=== PATIENT | female | born 1990 | race Caucasian/White ===

== ENCOUNTER 2017-04-01 12:24 | Emergency (ER) | payer MEDICAID, OTHER ==
[~2017-04-01] VITALS: Ht 157.5 cm; Wt 61.5 kg
[2017-04-01 12:38] VITALS: Ht 157.5 cm; Wt 61.5 kg
[2017-04-01 13:44] LABS: URINE BLOOD (Dip) POC Negative (NEGATIVE)
[2017-04-01] MEDS ORDERED: ONDA4TAB14 PO (13:56)
--- NOTE | 2017-04-01 14:04 | ERD ---
ER Documentation Chief Complaint Date/Time DATE: 04/01/17 TIME: 13:57 Chief Complaint CAME IN DUE TO THINKING SHE IS HYPOTENSIVE AND FEELING NAUSEA HPI Patient is a 26-year-old female who presents to the emergency department for concerns of "being hypotensive" and feeling nauseous. She states early this morning she felt as if her blood pressure was "hypotensive". She did not check her blood pressure using a blood pressure machine. Patient states she felt slightly dizzy at that time. Patient denies any syncopal episodes. Patient states she did drink some [employer] and had a bread and her symptoms did improve. Patient denies any dizziness, chest pain, shortness of breath, abdominal pain, vomiting, syncopal episodes or loss consciousness at this time. Patient states her symptoms have improved upon arrival to the ED and she feels much better. Patient last mental period was 1 month ago however she has irregular periods. Patient denies any dysuria, frequency or urgency. Patient denied any alcohol or drug use. ROS All systems reviewed and are negative except as per history of present illness. Medications Home Meds Active Scripts Ondansetron (Ondansetron Odt) 4 Mg Tab.rapdis, 4 MG PO Q6H Y for NAUSEA AND/OR VOMITING, #10 TAB Prov:SUKI ROWE PA-C 04/01/17 Allergies Allergies: Coded Allergies: No Known Drug Allergy (Verified Allergy, Mild, 04/01/17) PMhx/Soc Medical and Surgical Hx: pt denies Medical Hx, pt denies Surgical Hx History of Surgery: No Anesthesia Reaction: No Hx Neurological Disorder: No Hx Respiratory Disorders: No Hx Cardiac Disorders: No Hx Psychiatric Problems: No Hx Miscellaneous Medical Probl: No Hx Alcohol Use: No Hx Substance Use: No Hx Tobacco Use: No Smoking Status: Never smoker Physical Exam Vitals Vital Signs Date Time Temp Pulse Resp B/P Pulse Ox O2 Delivery O2 Flow Rate FiO2 04/01/17 12:38 98.6 81 18 127/66 99 Physical Exam GENERAL: Well-developed, well-nourished female. Appears in no acute distress. Speaking in full sentences HEAD: Normocephalic, atraumatic. No deformities or ecchymosis. EYE: Pupils equal, round, and reactive to light. EOMs intact. No conjunctival erythema. No eye discharge. ENT: External ear without any masses or tenderness. Auditory canals clear bilaterally. TM visualized bilaterally, non-erythematous, non-bulging. Nasal mucosa pink with no discharge. Oropharynx is pink without any tonsillar erythema or exudates. No uvula deviation. No kissing tonsils. NECK: Supple. No meningismus. Normal ROM of the neck. LUNG: Clear to auscultation bilaterally. No rhonchi, wheezing, rales or coarse breath sounds. HEART: Regular rate and rhythm. No murmurs, rubs or gallops. BACK: No midline tenderness. EXTREMITIES: Equal pulses bilaterally. No peripheral clubbing, cyanosis or edema. No unilateral leg swelling. NEUROLOGIC: Alert and oriented x3, cooperative. Mood and affect appropriate to situation. Cranial nerves II through XII are grossly intact. Normal speech. Motor exam: 5/5 strength in upper and lower extremities. Sensory exam: Sensation intact to light touch on all four extremities. Cerebellar function exam: Rapid alternating movements intact. No dysmetria on [id number] test. Steady gait. No pronator drift. SKIN: Normal color. Warm and dry. No rashes or lesions. Results 24 hrs Laboratory Tests Test 04/01/17 13:50 04/01/17 13:51 04/01/17 14:18 Bedside Urine pH (LAB) 7.5 Bedside Urine Protein (LAB) 1+ Bedside Urine Glucose (UA) Negative Bedside Urine Ketones (LAB) 1+ Bedside Urine Blood Negative Bedside Urine Nitrite (LAB) Negative Bedside Urine Leukocyte Esterase (L Trace Bedside Glucose 88mg/dL 105mg/dL Procedures/MDM ED COURSE: The patient was stable throughout ED course. I kept the patient and/or family informed of laboratory and diagnostic imaging results throughout the ED course. EKG: Read by Dr. Grossman, attending physician. EKG shows normal sinus rhythm at a rate of 60 bpm. No arrhythmias, acute ST elevations or T wave changes were noted. MEDICAL DECISION MAKING: Patient is a 26-year-old female presents the emergency department for concerns of "hypo-tension" and feeling nauseous. Patient states she had symptoms earlier today however after drinking some coffee and eating bread her symptoms have improved. At time of examination, Patient denied any current symptoms. Vital signs were reviewed. Patient is afebrile. Patient was not hypoxic. Patient's blood pressure upon arrival was noted to be 126/66, within normal limits. Patient was hemodynamically stable. Accu-Chek was obtained. Patient' s blood sugar was 88. test was negative. Urine dip did show trace leukocyte esterase however I do not believe the patient has a UTI at this time given that she denies any dysuria, frequency or urgency. EKG was within normal limits, normal sinus rhythm. At this time the patient's presentation is most consistent with nausea. Patient's symptoms may have been due to a low blood sugar at the time given that she had not eaten prior to the onset of her symptoms. Patient will be discharged home with a prescription for Zofran. Low suspicion for ACS, arrhythmia, pericarditis, aortic dissection, hypoglycemia or hypotension. PRESCRIPTION: Zofran DISCHARGE: At this time, patient is stable for discharge and outpatient management. She was also encouraged to stay hydrated as well as eat meals throughout the day. She was encouraged to obtain a blood pressure machine and keep a log of her blood pressure readings. I have instructed the patient to follow-up with his/ her primary care physician in 1-2 days. I have discussed with the patient the possibility of needing to see a specialist for further workup and imaging studies if symptoms persist. I have instructed the patient to promptly return to the ER for any new or worsening symptoms including increased pain, fever, nausea, vomiting, weakness or LOC. The patient and/or family expressed understanding of and agreement with this plan. All questions were answered. Home care instructions were provided. Departure Diagnosis: Primary Impression: Nausea Additional Impression: Severe nausea and vomiting Condition: Stable Patient Instructions: Nausea Referrals: [facility] YOU HAVE RECEIVED A MEDICAL SCREENING EXAM AND THE RESULTS INDICATE THAT YOU DO NOT HAVE A CONDITION THAT REQUIRES URGENT TREATMENT IN THE EMERGENCY DEPARTMENT. FURTHER EVALUATION AND TREATMENT OF YOUR CONDITION CAN WAIT UNTIL YOU ARE SEEN IN YOUR DOCTORS OFFICE WITHIN THE NEXT 1-2 DAYS. IT IS YOUR RESPONSIBILITY TO MAKE AN APPOINTMENT FOR FOLOW-UP CARE. IF YOU HAVE A PRIMARY DOCTOR --you should call your primary doctor and schedule an appointment IF YOU DO NOT HAVE A PRIMARY DOCTOR YOU CAN CALL OUR PHYSICIAN REFERRAL HOTLINE AT IF YOU CAN NOT AFFORD TO SEE A PHYSICIAN YOU CAN CHOSE FROM THE FOLLOWING [facility] [address] [facility]. [facility] [address] [facility] [address] [facility] [facility] [address] [facility]. [facility] [address] [facility] [facility]. [address] [facility]. [facility] YOU HAVE RECEIVED A MEDICAL SCREENING EXAM AND THE RESULTS INDICATE THAT YOU DO NOT HAVE A CONDITION THAT REQUIRES URGENT TREATMENT IN THE EMERGENCY DEPARTMENT. FURTHER EVALUATION AND TREATMENT OF YOUR CONDITION CAN WAIT UNTIL YOU ARE SEEN IN YOUR DOCTORS OFFICE WITHIN THE NEXT 1-2 DAYS. IT IS YOUR RESPONSIBILITY TO MAKE AN APPOINTMENT FOR FOLOW-UP CARE. IF YOU HAVE A PRIMARY DOCTOR --you should call your primary doctor and schedule and appointment IF YOU DO NOT HAVE A PRIMARY DOCTOR YOU CAN CALL OUR PHYSICIAN REFERRAL HOTLINE AT . IF YOU CAN NOT AFFORD TO SEE A PHYSICIAN YOU CAN CHOSE FROM THE FOLLOWING [facility] INSTITUTIONS: [facility] [address] [place] [address] [facility] [address] [place], [place] [id number] [place] [address] [address] [place] [address] Additional Instructions: Call your primary care doctor TOMORROW for an appointment during the next 1-2 days.See the doctor sooner or return here if your condition worsens before your appointment time. By a blood pressure machine. Keep a log of your blood pressures. Show log to your primary care physician. SUKI ROWE PA-C Apr 01, 2017 14:04
== END 2017-04-01 14:21 | disposition home or self-care (01) ==
LOC: FTE 12:24
DX: R11.2 Nausea with vomiting, unspecified (principal)
CPT/HCPCS: 81003; 82962; Z7502; 93005

== ENCOUNTER 2019-06-14 16:22 | Outpatient (CLI) | payer OTHER ==
[~2019-06-14] VITALS: Ht 157.5 cm; Wt 81.4 kg
[~2019-06-14 16:22] MED LIST: ONDA4TAB14 PO; PNV11TAB PO
[2019-06-14 16:37] VITALS: Ht 157.5 cm; Wt 81.4 kg
[2019-06-14 16:38] VITALS: BP 92/55; PULSE 82; RESP 19
== END 2019-06-14 19:02 | disposition home or self-care (01) ==
LOC: OBT 16:22 → L-D 16:24 → OBT 19:02
PROVIDERS: ATTEND Obstetrics & Gynecology
DX: O26.893 Other specified pregnancy related conditions, third trimester (principal); Z3A.34 34 weeks gestation of pregnancy; R10.2 Pelvic and perineal pain
CPT/HCPCS: 76818; 81001; Z7500; G0463